=== PATIENT | male | born 2000 | race African-American/Black ===

== ENCOUNTER 2023-03-13 01:54 | Emergency (ER) | payer MEDICAID, OTHER ==
[~2023-03-13] VITALS: Ht 172.7 cm; Wt 65.0 kg
[2023-03-13] MEDS ORDERED: SODIUM CHLORIDE 0.9% 1,000 ML IV ONE (02:15)
[2023-03-13 03:03] LABS: BASOPHILS % 1.2 % (0.0-2.0); EOSINOPHILS % 4.1 % (0.0-5.0); HEMATOCRIT. 42.7 % (42.0-52.0); LYMPHOCYTES % 32.5 % (20.0-50.0); MEAN CORPUSCULAR HEMOGLOBIN 27.1 pg (28.0-32.0); MEAN CORPUSCULAR VOLUME 82.8 fL (80.0-94.0); MEAN PLATELET VOLUME 7.9 fl (7.4-10.4); MONOCYTES % 12.8 % (2.0-8.0); NEUTROPHILS % 49.4 % (40.0-76.0); PLATELET 216 x1000/uL (130-400); RED BLOOD CELL COUNT 5.16 mill/uL (4.7-6.1); RED CELL DISTRIBUTION WIDTH 15.4 % (11.6-14.6)
[2023-03-13 03:14] LABS: CHLORIDE 107 mEq/L (98-107)
[2023-03-13 03:21] LABS: ETHANOL BLOOD < 10 mg/dL
[2023-03-13] MEDS ORDERED: NALO4SPR BOTHNSTRLS (04:24)
[2023-03-13 04:45] VITALS: BP 122/65
[2023-03-13 05:49] LABS: *AMPHETAMINES SCREEN URINE NEGATIVE (NEGATIVE); *BARBITURATES SCREEN URINE NEGATIVE (NEGATIVE); *BENZODIAZEPINES SCREEN URINE NEGATIVE (NEGATIVE); *COCAINE SCREEN URINE NEGATIVE (NEGATIVE); CANNABINOID URINE SCREEN PRESUMTIVE POSITIVE (NEGATIVE); METHADONE URINE SCREEN NEGATIVE (NEGATIVE); OPIATES URINE SCREEN NEGATIVE (NEGATIVE); PHENCYCLIDINE URINE SCREEN NEGATIVE (NEGATIVE)
== END 2023-03-13 05:06 | disposition home or self-care (01) ==
LOC: ER 01:54
DX: T40.421A Poisoning by tramadol, accidental (unintentional), initial encounter (principal); I49.9 Cardiac arrhythmia, unspecified; Y92.9 Unspecified place or not applicable
CPT/HCPCS: 36415; 80053; 80305; 80307; 80320; 80329; 85025; 93005; 96360; 99284; J7030; Z7610; G0480